=== PATIENT | male | born 1950 | race Caucasian/White ===

== ENCOUNTER → 2023-11-09 09:23 | Outpatient (REF) | payer MEDICARE, OTHER, SELFPAY ==
[2023-11-09 10:21] LABS: Urine Albumin Negative (Neg - Trace); Urine Bilirubin Negative (Negative); Urine Character Clear (Clear); Urine Color Straw; Urine Glucose Negative (Negative); Urine Ketone Negative (Negative); Urine Leukocyte Negative (Negative); Urine Nitrite Negative (Negative); Urine Occult Blood Negative (Negative); Urine Urobilinogen Negative (Neg - 1+)
[2023-11-09 10:22] LABS: Hematocrit 35.1 % (39.0-52.0); Hemoglobin 12.3 g/dL (13.0-18.0); Mean Corpuscular Hgb 29.9 pg (27.0-31.0); Mean Corpuscular Volume 85.2 fL (80.0-94.0); Mean Platelet Volume 10.4 fL (7.4-10.4); Platelet Count 232 10^3/uL (130-400); Red Blood Cell Count 4.12 10^6/uL (4.70-6.10); Red Cell Dist. Width 12.3 % (11.5-14.5); White Blood Cell Count 6.1 10^3/uL (4.8-10.8)
[2023-11-09 10:28] LABS: INR 1.07; PT 14.1 Sec (11.4-14.6)
[2023-11-09 10:51] LABS: ALT (SGPT) 15 U/L (0-50); AST (SGOT) 18 U/L (17-59); Albumin 3.7 g/dl (3.5-5.0); Alkaline Phosphatase 100 U/L (38-126); Blood Urea Nitrogen 18 mg/dl (9-20); Calcium 8.9 mg/dl (8.4-10.2); Carbon Dioxide 29 mmol/L (22-30); Chloride 109 mmol/L (98-107); Glucose 98 mg/dl (70-99); Potassium 4.3 mmol/L (3.5-5.1); Sodium 139 mmol/L (135-145); Total Bilirubin 0.6 mg/dl (0.2-1.3); Total Protein 5.9 g/dl (6.3-8.2); eGFR > 60.00
[2023-11-09 11:52] LABS: Magnesium 2.1 mg/dl (1.6-2.3); Phosphorus 3.8 mg/dl (2.5-4.5)
== END ==
LOC: OLABN 09:23
PROVIDERS: ATTENDING PHYSICIAN Student in an Organized Health Care Education/Training Program
DX: E03.9 Hypothyroidism, unspecified (principal); N20.0 Calculus of kidney; N17.9 Acute kidney failure, unspecified
CPT/HCPCS: 36415; 80053; 81003; 83735; 84100; 84550; 85027; 85610

== ENCOUNTER 2023-11-12 07:08 | Day surgery (SDC) | payer MEDICARE, OTHER, SELFPAY ==
[2023-11-12] VITALS (7 sets, daily range): BP systolic 106–117; BP diastolic 60–69; BMI 30.4
[2023-11-12] MEDS: NORMOSOL-R 1000 IV (09:05)
[2023-11-12] MEDS: TYLENOL 1000 MG PO (09:39)
[2023-11-12] MEDS: Pyridium 200 MG PO (11:52)
== END 2023-11-12 13:15 | disposition home or self-care (01) ==
LOC: SDS 07:08
PROVIDERS: ATTENDING PHYSICIAN Specialist
DX: N20.0 Calculus of kidney (principal)
CPT/HCPCS: 52356; 74018; 76000; 93005; C2617

== ENCOUNTER → 2024-05-17 09:18 | Outpatient (REF) | payer MEDICARE, OTHER, SELFPAY ==
[2024-05-19 14:03] LABS: Keppra (Levetiracetam) 28 ug/mL (10-40)
== END ==
LOC: OLABN 09:18
PROVIDERS: ATTENDING PHYSICIAN Student in an Organized Health Care Education/Training Program
DX: G40.A09 Absence epileptic syndrome, not intractable, without status epilepticus (principal)
CPT/HCPCS: 36415; 80177

== ENCOUNTER → 2024-06-28 10:58 | Outpatient (REF) | payer MEDICARE, OTHER, SELFPAY ==
[2024-06-28 12:08] LABS: TSH 3.55 uIU/ml (0.47-4.68)
== END ==
LOC: OLABN 10:58
PROVIDERS: ATTENDING PHYSICIAN Student in an Organized Health Care Education/Training Program
DX: E03.9 Hypothyroidism, unspecified (principal)
CPT/HCPCS: 36415; 84439; 84443

== ENCOUNTER → 2024-06-30 07:53 | Outpatient (REF) | payer MEDICARE, OTHER, SELFPAY ==
[2024-06-30 08:16] LABS: % Basophils 0.9 % (0-2); % Eosinophils 3.4 % (0-6); % Immature Granulocytes 0.3 % (0-0.5); % Monocytes 10.3 % (1.7-9.3); % Neutrophils 66.1 % (42.2-75.2); Absolute Basophils 0.1 10^3/uL (0-0.2); Absolute Eosinophils 0.3 10^3/uL (0-0.7); Absolute Lymphocytes 1.4 10^3/uL (1.2-3.4); Absolute Monocytes 0.8 10^3/uL (0.1-0.6); Absolute Neutrophils 4.9 10^3/uL (1.4-6.5); Hemoglobin 12.3 g/dL (13.0-18.0); Mean Corp Hgb Conc. 34.2 g/dL (33.0-37.0); Mean Corpuscular Hgb 30.1 pg (27.0-31.0); Mean Corpuscular Volume 88.2 fL (80.0-94.0); Mean Platelet Volume 10.4 fL (7.4-10.4); Nucleated Red Blood Cells % 0 % (-); Platelet Count 236 10^3/uL (130-400); Red Blood Cell Count 4.08 10^6/uL (4.70-6.10); Red Cell Dist. Width 12.6 % (11.5-14.5); White Blood Cell Count 7.4 10^3/uL (4.8-10.8)
[2024-06-30 08:35] LABS: ALT (SGPT) 16 U/L (0-50); AST (SGOT) 17 U/L (17-59); Albumin 3.9 g/dl (3.5-5.0); Alkaline Phosphatase 119 U/L (38-126); Blood Urea Nitrogen 26 mg/dl (9-20); Calcium 9.2 mg/dl (8.4-10.2); Carbon Dioxide 22 mmol/L (22-30); Chloride 108 mmol/L (98-107); Glucose 135 mg/dl (70-99); Potassium 4.1 mmol/L (3.5-5.1); Sodium 144 mmol/L (135-145); Total Bilirubin 0.4 mg/dl (0.2-1.3); eGFR > 60.00
[2024-07-02 02:04] LABS: Keppra (Levetiracetam) 29 ug/mL (10-40)
[2024-07-02 20:48] LABS: Zonisamide 3 ug/mL (10-40)
== END ==
LOC: OLABN 07:53
PROVIDERS: ATTENDING PHYSICIAN Student in an Organized Health Care Education/Training Program
DX: R56.9 Unspecified convulsions (principal)
CPT/HCPCS: 36415; 80053; 80177; 80203; 85025

== ENCOUNTER 2024-07-26 11:46 | Emergency (ER) | payer MEDICARE, OTHER, SELFPAY ==
[2024-07-26 12:03] VITALS: BP 135/69
[2024-07-26 12:23] LABS: % Basophils 0.8 % (0-2); % Eosinophils 2.3 % (0-6); % Immature Granulocytes 0.3 % (0-0.5); % Lymphocytes 14.3 % (20.5-51.1); % Neutrophils 75.3 % (42.2-75.2); Absolute Basophils 0.1 10^3/uL (0-0.2); Absolute Eosinophils 0.2 10^3/uL (0-0.7); Absolute Lymphocytes 1.1 10^3/uL (1.2-3.4); Absolute Monocytes 0.5 10^3/uL (0.1-0.6); Absolute Neutrophils 5.6 10^3/uL (1.4-6.5); Hematocrit 39.2 % (39.0-52.0); Hemoglobin 13.5 g/dL (13.0-18.0); Mean Corp Hgb Conc. 34.4 g/dL (33.0-37.0); Mean Corpuscular Hgb 30.1 pg (27.0-31.0); Mean Corpuscular Volume 87.3 fL (80.0-94.0); Mean Platelet Volume 10.1 fL (7.4-10.4); Nucleated Red Blood Cells % 0 % (-); Platelet Count 232 10^3/uL (130-400); Red Blood Cell Count 4.49 10^6/uL (4.70-6.10); Red Cell Dist. Width 12.1 % (11.5-14.5); White Blood Cell Count 7.5 10^3/uL (4.8-10.8)
[2024-07-26 12:35] LABS: ALT (SGPT) 19 U/L (0-50); AST (SGOT) 18 U/L (17-59); Albumin 4.6 g/dl (3.5-5.0); Alkaline Phosphatase 98 U/L (38-126); Blood Urea Nitrogen 18 mg/dl (9-20); Calcium 9.4 mg/dl (8.4-10.2); Carbon Dioxide 24 mmol/L (22-30); Chloride 105 mmol/L (98-107); Glucose 185 mg/dl (70-99); Sodium 145 mmol/L (135-145); Total Bilirubin 0.5 mg/dl (0.2-1.3); Total Protein 6.8 g/dl (6.3-8.2); eGFR > 60.00
[2024-07-26 12:45] LABS: Troponin I < 0.012 ng/ml
[2024-07-26 14:17] VITALS: BP 118/68
[2024-07-26 15:14] VITALS: BP 126/67
--- NOTE | 2024-07-26 15:51 | ED.GENMED ---
History of Present Illness
<Chase Ashby MD, Resident - Last Filed: 07/26/24 21:36>
General
Chief Complaint: Chest Pain
Source: patient
Exam Limitations: none
Time Seen by Provider: 07/26/24 15:09
History of Present Illness
History of Present Illness:
74-year-old male with past medical history of hypertension,TIA, seizure who presents with bilateral chest pain since yesterday. He states it is like 'bruising' kind of feeling and 'deep sore' sensation. He also mentions feeling bruised under his
armpits. Also mentions he is not sure if it is a burning pain related to GERD. Pain got better with a dose of Tylenol. Patient had similar complaint 2 years ago and feels that this is the same but only more severe. No nausea vomiting. No
sweating. Bowel movements are regular. No shortness of breath/ no coughing. Denies recent travel/ surgery/ trauma. Mentions he is quite active and lifts weights daily.
Past History
<Chase Ashby MD, Resident - Last Filed: 07/26/24 21:36>
Past History
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
Other (duodenal ulcer with UGI bleed 2012, kidney stones); Negative IDDM
ED Past Surgical History: Other (lithotripsy, Malignant melanoma removed from left shoulder 2 years ago.)
Social History
Tobacco: Non-smoker
Alcohol: Occasional (rare ETOH)
Drug: None
Personal: Single
Living: longterm
Employment: Disabled
Family History
Family History: Hypertension
Review of Systems
<Chase Ashby MD, Resident - Last Filed: 07/26/24 21:36>
Review of Systems
Allergies reviewed?: Yes
All Other Systems: ROS reviewed and negative except as documented in HPI and ROS
Phy Exam
<Chase Ashby MD, Resident - Last Filed: 07/26/24 21:36>
Physical Exam
Physical Exam:
Alert and oriented
Cardiovascular Exam
Cardiovascular Exam: regular rate/rhythm, no edema, no JVD, no murmur and normal peripheral pulses
Pulmonary Exam
Pulmonary Exam: lungs clear, no respiratory distress, no crackles, no wheezing and other (Lateral upper chest wall on both sides tender to palpation. )
Gastrointestinal Exam
Gastrointestinal Exam: normal bowel sounds, non tender, soft, no organomegaly and other (Umbilical hernia, Moderate abdominal distention)
Neurological Exam
Neurological Exam: alert, oriented x3, CN II-XII intact, no motor deficits, normal reflexs, no sensory deficits and speech normal
Musculoskeletal Exam
Musculoskeletal Exam: full ROM, no edema and other (Reproducible lateral chest pain on both sides)
Scores
<Chase Ashby MD, Resident - Last Filed: 07/26/24 21:36>
Heart Score for Chest Pain Patients
STEMI patient?: No
History: Slightly or Non-Suspicious
ECG: Normal
Age: >/= 65 years
Risk Factors: 1 or 2 Risk Factors
Troponin: </= Normal Limit
Heart Score for Chest Pain Patients: 3
Heart Score Risk: 2.5% MACE over next 6 weeks
Course
<Chase Ashby MD, Resident - Last Filed: 07/26/24 21:36>
Orders/Labs/Results
Orders:
Orders
07/26/24 11:48
Electrocardiogram (*1) Urgent
Reason for Study: Chest Pain
EKG- Treatment ONCE
07/26/24 12:13
C-Reactive Protein Urgent
Comment: ESR
Complete Blood Count/With Diff Urgent
Comprehensive Metabolic Panel Urgent
Erythrocyte Sed Rate Urgent
Comment: ADD ON
Troponin I Urgent
07/26/24 16:03
Add On- LAB Urgent
Tests Added?: ESR, CRP
CR Chest - 2 Views Urgent
Comment:
Reason For Exam: chest pain
07/26/24 17:53
Acetaminophen [Tylenol] 650 mg PO NOW STA
Abnormal Lab Results
07/26/24
12:13
RBC 4.49 L 10^6/uL
(4.70-6.10)
Absolute Lymphs (auto) 1.1 L 10^3/uL
(1.2-3.4)
Neutrophils % 75.3 H %
(42.2-75.2)
Lymphocytes % 14.3 L %
(20.5-51.1)
Glucose 185 H mg/dl
(70-99)
07/26/24 12:13
07/26/24 12:13
Vital Signs
Initial and Last Documented VS:
Initial Vital Signs
Temp Pulse Resp BP Pulse Ox
97.7 F 69 18 135/69 98
07/26/24 12:03 07/26/24 12:03 07/26/24 12:03 07/26/24 12:03 07/26/24 12:03
Last Documented Vital Signs
Temp Pulse Resp BP Pulse Ox
97.8 F 69 12 105/86 97
07/26/24 14:17 07/26/24 18:15 07/26/24 18:15 07/26/24 18:00 07/26/24 18:15
<Sukh Andre MD - Last Filed: 07/26/24 17:55>
Orders/Labs/Results
Orders:
Orders
07/26/24 11:48
Electrocardiogram (*1) Urgent
Reason for Study: Chest Pain
EKG- Treatment ONCE
07/26/24 12:13
C-Reactive Protein Urgent
Comment: ESR
Complete Blood Count/With Diff Urgent
Comprehensive Metabolic Panel Urgent
Erythrocyte Sed Rate Urgent
Comment: ADD ON
Troponin I Urgent
07/26/24 16:03
Add On- LAB Urgent
Tests Added?: ESR, CRP
CR Chest - 2 Views Urgent
Comment:
Reason For Exam: chest pain
07/26/24 17:53
Acetaminophen [Tylenol] 650 mg PO NOW STA
Abnormal Lab Results
07/26/24
12:13
RBC 4.49 L 10^6/uL
(4.70-6.10)
Absolute Lymphs (auto) 1.1 L 10^3/uL
(1.2-3.4)
Neutrophils % 75.3 H %
(42.2-75.2)
Lymphocytes % 14.3 L %
(20.5-51.1)
Glucose 185 H mg/dl
(70-99)
07/26/24 12:13
07/26/24 12:13
Vital Signs
Initial and Last Documented VS:
Initial Vital Signs
Temp Pulse Resp BP Pulse Ox
97.7 F 69 18 135/69 98
07/26/24 12:03 07/26/24 12:03 07/26/24 12:03 07/26/24 12:03 07/26/24 12:03
Last Documented Vital Signs
Temp Pulse Resp BP Pulse Ox
97.8 F 69 12 105/86 97
07/26/24 14:17 07/26/24 18:15 07/26/24 18:15 07/26/24 18:00 07/26/24 18:15
<Chase Ashby MD, Resident - Last Filed: 07/26/24 21:36>
MDM/Problems Addressed
Differential Diagnosis Includes:
Musculoskeletal pain, PMR, Stable angina, Unstable angina (less likely)
<Chase Ashby MD, Resident - Last Filed: 07/26/24 21:36>
*Critical Care Note
Total Time (30-74mins, 75-104mins- exclusive of procedures): Not Applicable
ED Attending Note
<Chase Ashby MD, Resident - Last Filed: 07/26/24 21:36>
-
Portions of this chart may have been created with voice recognition software.� Occasional wrong word or��sound alike� substitutions may have occurred due to the inherent limitations of voice recognition software.
<Sukh Andre MD - Last Filed: 07/26/24 17:55>
ED Attending Note
Patient seen and examined by attending physician: Yes
ED Attending Note:
Patient presents to ED from longterm secondary to persistent chest pain and bilateral 'armpit pain' since yesterday afternoon. Chest pain described as sharp, radiating across his entire chest, without any exacerbating factors, but mildly
relieved with Tylenol. Denies direct trauma. Denies fever or chills. Denies shortness of breath. Denies nausea or vomiting. Patient states that he has had similar symptoms in the past, but does not know why. Patient states that he routinely,
sometimes daily, exercise with the use of light weight, including range of motion, as recommended by physical therapist at the facility. Denies increasing weight. Denies recent illness. Denies recent change in medications or diet.
Physical Exam
General: no apparent distress, not acutely ill. afebrile
Head: nc/at. eomi
Neck: supple. normal range of motion.
Heart: s1/s2 regular rate and rhythm, no murmur. equal radial pulses.
Lungs: no acute respiratory distress. clear bilaterally. mild diffuse anterior chest wall tenderness to palpation, without erythema/swelling/ecchymosis.
Abdomen: normal bowel sounds. not tender.
Neuro: alert and oriented. no focal neurological deficits. normal speech.
Skin: no rash
Psychiatric: well kept. interactive and cooperative
Extremities: diffuse b/l shoulder/knee pain. no calf tenderness.
Patient with reproducible chest wall pain, with differential diagnosis including musculoskeletal pain, lymphadenopathy, rib strain, less likely ACS. Blood work, including troponin and EKG within normal limits. Will check chest x-ray as well as ESR
and CRP due to multiple joint pain.
Chest x-ray: No acute findings.
Patient with likely musculoskeletal pain, not requiring further workup at this time. Patient will be advised to not participate in any physical therapy or exercise program for the next 2 days, along with tylenol for pain and PCP follow-up as an
outpatient.
Discharge Plan
Departure
Patient Disposition: Detention/SNF
Date of Disposition: 07/26/24
Time of Disposition: 17:54
Patient with high blood pressure during this ER visit?: Yes
Discharge Problem:
Musculoskeletal pain
Instructions: Chest Pain PCP Follow Up
Prescriptions:
No Action
aspirin 81 MG tablet,delayed release (DR/EC)
81 mg PO DAILY Qty: 0 0RF
atorvastatin 40 MG tablet
40 mg PO QPM
famotidine 20 MG tablet
10 mg PO DAILY
potassium citrate 10 MEQ tablet extended release
30 meq PO BID
levothyroxine 25 MCG tablet
25 mcg PO DAILY
acetaminophen 325 MG tablet
650 mg PO Q4HPRN PRN (Reason: MILD PAIN) 0RF
Rx Instructions:
FEVER > 100.4
sennosides [senna] 8.6 mg Tablet
8.6 mg PO HS
polyethylene glycol 3350 [Miralax] 17 gram Powder In Packet
17 g PO DAILY
Rx Instructions:
stir powder in at least 4 oz fluid until dissolved and administer immediately
amlodipine 5 mg Tablet
5 mg PO DAILY
zonisamide [Zonegran] 100 mg Capsule
100 mg PO DAILY
tamsulosin 0.4 mg Capsule
0.8 mg PO HS
trazodone 100 mg Tablet
100 mg PO HS
hydrocortisone 1 % Cream
1 applic TOPICAL BID PRN (Reason: skin rash)
Rx Instructions:
apply to forehead, until resolved
triamcinolone acetonide 40 mg/mL Suspension
40 mg IM PRN PRN (Reason: corticosteroid injection)
Rx Instructions:
to be given in left knee by Dr. Rubio
bisacodyl 10 mg Suppository
10 mg [place] DAILY PRN (Reason: constipation)
Rx Instructions:
q3days when no BM and lactulose is ineffective
oxybutynin chloride [Ditropan XL] 5 mg Tablet Extended Release 24hr
5 mg PO HS
gabapentin 300 mg Capsule
300 mg PO TID
levetiracetam [Keppra] 750 mg Tablet
1,500 mg PO BID
alum-mag hydroxide-simeth [Antacid] 200-200-20 mg/5 mL Suspension
20 ml PO Q8H
nystatin 100,000 unit/gram Powder
1 applic TOPICAL BID PRN (Reason: cutaneous candidiasis)
loratadine 10 mg Tablet
10 mg PO DAILY PRN (Reason: hypersensitive allergies)
lactulose 10 gram/15 mL Solution
20 g PO HS PRN (Reason: constipation)
Refresh Optive 0.5-0.9 % Drops
1 drp OPHTHALMIC (EYE) BID PRN (Reason: dry eye)
Rx Instructions:
BOTH EYES
lidocaine HCl 4 % Adhesive Patch,Medicated
1 patch TOPICAL DAILY
Rx Instructions:
ON AM, OFF PM
x14 days, first date: 11/03/2023
Left knee
sertraline 25 MG tablet
50 mg PO DAILY
Referrals:
Sancho Spencer DO [Family Provider] -
Activity Restrictions/Additional Instructions:
As discussed, you are being discharged back to longterm for continual care. You may take Tylenol, as needed for pain.
Interventions
Interventions:
*Risk Screen - Suicide Last Done: 07/26/24 12:03
*General Assessment Last Done: 07/26/24 12:03
*Neglect/Abuse Screening Last Done: 07/26/24 12:03
ED- Fall Risk Assessment Last Done: 07/26/24 19:54
*ED COVID-19 Vaccine History Last Done: 07/26/24 12:05
*Nursing Disposition Last Done: 07/26/24 19:54
ED- Cardiac Assessment Last Done: 07/26/24 15:16
Discharge Date and Time
Discharge Date/Time: 07/26/24 19:55
Print Language: GRENADIAN
[2024-07-26 16:00] VITALS: BP 135/100
[2024-07-26 17:20] VITALS: BP 120/56
[2024-07-26 17:43] LABS: Erythrocyte Sed Rate 13 mm/hour (0-20)
[2024-07-26 18:00] VITALS: BP 105/86
[2024-07-26] MEDS: TYLENOL 650 MG PO (18:00)
== END 2024-07-26 19:55 ==
LOC: EMR 11:46
PROVIDERS: Student in an Organized Health Care Education/Training Program; EMERGENCY PHYSICIAN Emergency Medicine; FAMILY PHYSICIAN Student in an Organized Health Care Education/Training Program
DX: R07.9 Chest pain, unspecified (principal); K21.9 Gastro-esophageal reflux disease without esophagitis; I10 Essential (primary) hypertension; G47.30 Sleep apnea, unspecified; Z85.820 Personal history of malignant melanoma of skin; Z86.73 Personal history of transient ischemic attack (TIA), and cerebral infarction without residual deficits
CPT/HCPCS: 99285; 71046; 80053; 84484; 85025; 85652; 86140; 93005

== ENCOUNTER 2024-07-29 20:17 | Emergency (ER) | payer MEDICARE, OTHER, SELFPAY ==
[2024-07-29 20:24] VITALS: BP 119/75
[2024-07-29 20:28] VITALS: BP 119/75
--- NOTE | 2024-07-29 21:04 | ED.GENMED ---
History of Present Illness
General
Chief Complaint: Abdominal Pain
Source: patient
Exam Limitations: none
Time Seen by Provider: 07/29/24 20:18
History of Present Illness
History of Present Illness:
This is a 74 year old male that comes in with c/o right lower abd pain. States that he has this stabbing pain or like a deep bruising pain on the right abd. States that his pain radiates around to his right lower back. States that this started at
3:45am today and that the pain has been constant. Denies any fever, chills, chest pain, SOB, nausea, vomiting, diarrhea, headache, dizziness, urinary burning.
Past History
Past History
ED Past Medical History: Cancer (malignant melanoma removed from shoulder on the left, Skin cancer), CVA, GERD, HTN, Hypercholesterolemia, Seizures, Hypothyroidism, Psychiatric (Anxiety, Depression, ), Other (Migraines, IBS, chronic static
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 difficulty with balance, Neuropathy, Sleep apnea uses CPAP, DVT left, GI bleeding, Renal calculus, ), Other (TIAs, UTi, Brachial plexlpathy, ) and Other (duodenal ulcer with UGI bleed 2012, kidney
stones); Negative IDDM
ED Past Surgical History: Urological (Lithotripsy X 2) and Other (lithotripsy, Malignant melanoma removed from left shoulder 2 years ago.)
Social History
Tobacco: Non-smoker
Alcohol: Occasional (rare ETOH)
Drug: None
Personal: Single
Living: senior living
Employment: Disabled
Family History
Family History: Hypertension
Review of Systems
Review of Systems
All Other Systems: ROS reviewed and negative except as documented in HPI and ROS
Constitutional: Reports no symptoms; Denies fever or chills
EENT: Reports no symptoms
Respiratory: Reports no symptoms; Denies cough or trouble breathing
Cardiac: Reports no symptoms; Denies chest pain
ABD/GI: Reports abdominal pain; Denies nausea, vomiting or diarrhea
: Reports no symptoms; Denies dysuria, frequency or urgency
Musculoskeletal: Reports no symptoms
Skin: Reports no symptoms
Neurological: Reports no symptoms; Denies dizzy or headache
Psychiatric: Reports no symptoms
Phy Exam
General Physical Exam
General Presentation: no apparent distress
General age: appears stated age
General Skin: warm and dry
General Habitus: elderly
General Mental: alert
General Hydration: dry mucous membranes
ENT Exam
ENT Exam: TM's normal, pharynx normal and neck supple
Eye Exam
Eye Exam: EOMI
Cardiovascular Exam
Cardiovascular Exam: regular rate/rhythm and normal peripheral pulses
Pulmonary Exam
Pulmonary Exam: lungs clear, no respiratory distress, no rales, chest non tender, no crackles, no rhonchi, no wheezing and no cough
Gastrointestinal Exam
Gastrointestinal Exam: normal bowel sounds, soft, no organomegaly, no pulsatile mass, non distended and tender (Right lower abd tenderness with palpation)
Musculoskeletal Exam
Musculoskeletal Exam: full ROM
Skin Exam
Skin Exam: normal color, warm/dry, no rash and no petechia
Psychiatric Exam
Psychiatric Exam: normal mood/affect
Course
Orders/Labs/Results
Orders:
Orders
07/29/24 20:36
Electrocardiogram (*1) Urgent
Reason for Study: Abdominal Pain
EKG- Treatment ONCE
IV Insert/Care/Rem.- Treatment PRN
07/29/24 21:03
CT Abd/pelvis W Iv Cont Urgent
Comment:
Reason For Exam: Right lower abd pain
07/29/24 21:04
0.9% Sodium Chloride 500 ml [Nss] 500 ml IV BOLUS
07/29/24 21:11
Complete Blood Count/With Diff Urgent
Comprehensive Metabolic Panel Urgent
Lipase Urgent
07/29/24 23:09
Urinalysis Reflex To Culture Urgent
Date Specimen was Collected: 07/29/24
Time Specimen was Collected: 20:36
Urine Microscopic Reflex Cult Urgent
07/29/24 23:43
HYDROmorphone [Dilaudid] 0.5 mg .ROUTE .STK-MED ONE
Ondansetron Injectable [Zofran] 4 mg .ROUTE .STK-MED ONE
07/29/24 23:45
Ondansetron Injectable [Zofran] 4 mg IV NOW STA
07/29/24 23:46
HYDROmorphone [Dilaudid] 0.5 mg IV NOW STA
07/29/24 23:55
Tamsulosin [Flomax] 0.4 mg PO NOW STA
Abnormal Lab Results
07/29/24 07/29/24
21:11 23:09
RBC 4.53 L 10^6/uL
(4.70-6.10)
Hct 37.8 L %
(39.0-52.0)
Absolute Neuts (auto) 8.3 H 10^3/uL
(1.4-6.5)
Absolute Lymphs (auto) 0.9 L 10^3/uL
(1.2-3.4)
Absolute Monos (auto) 1.2 H 10^3/uL
(0.1-0.6)
Neutrophils % 78.6 H %
(42.2-75.2)
Lymphocytes % 8.0 L %
(20.5-51.1)
Monocytes % 11.1 H %
(1.7-9.3)
BUN 21 H mg/dl
(9-20)
Glucose 142 H mg/dl
(70-99)
Ur Occult Blood Reflex Trace A
(Negative)
07/29/24 21:11
07/29/24 21:11
slight Dehydration. hyperglycemia. Urine negative for infection. Lipase normal at 110
Vital Signs
Initial and Last Documented VS:
Initial Vital Signs
Temp Pulse Resp BP Pulse Ox
98.3 F 65 16 119/75 94
07/29/24 20:24 07/29/24 20:24 07/29/24 20:24 07/29/24 20:24 07/29/24 20:24
Last Documented Vital Signs
Temp Pulse Resp BP Pulse Ox
98.3 F 65 12 119/75 93
07/29/24 20:24 07/29/24 21:15 07/29/24 21:15 07/29/24 20:28 07/29/24 21:15
MDM/Problems Addressed
Differential Diagnosis Includes:
Renal calculus, Appendicitis
MDM/Problems Addressed:
This is a 74 year old male that comes in with c/o right lower abd pain that goes around to his back. States that this started today.
will check labs, urine and get CT scan,
back into see patient. Explained that he has 2 stones in the right ureter. Patient is taking Flomax. Will have patient use Tylenol and Ibuprofen for pain and will also sent a Narcotic pain medication to his pharmacy. Patient to strain his urine and
follow up with the Urologist. Patient to return with any increased or changing pain. Offered patient admission but he wants to try and pass the stones on his own.
Chronic conditions affecting care:
Renal calculus
Acute Exacerbation and/or Progression of Chronic Illness:
NA
*Radiology
Radiology exam reviewed: radiology read reviewed (CT night hawk- Two closly apposed obstructing calculi in the proximal right ureter, each individually measuring up to 5mm, and together measuring up to 8mm combined maximum SI dimension (203:40).
There is associated mild to moderate right hydroureteronephrosis. Right-sided perinephric stranding may), all reviewed NAD by ED Provider (CT cont-may be related to obstructive your are, through correlation with UA to assess for superimposed
infection is recommended. Bilateral renal calculi also seen. Noninflamed appendix. Additional findings: DHD, DISH. grade 1 anterolisthesis of L4 and L5. Grade 1 retrolisthesis of L5 on S1. ) and other (Ct cont- fat-containing umbilical hernia.
vascular calcifications. Probable bilateral renal cystic foci. )
*Pulse Oximetry
Patient hypoxic: no
*EKG
Interpreted by ED Provider?: Yes
Heart Rate: 63
Rate: normal
Rhythm: sinus
Cantril: normal axis
Interval: normal interval
QRS Pattern: normal QRS
Ischemia: no ischemia
*Employee Relations Assistant Interpretation
Rate: normal
Heart Rate: 71
Rhythm: sinus
*Critical Care Note
Total Time (30-74mins, 75-104mins- exclusive of procedures): Not Applicable
ED Attending Note
-
Portions of this chart may have been created with voice recognition software.� Occasional wrong word or��sound alike� substitutions may have occurred due to the inherent limitations of voice recognition software.
Discharge Plan
Departure
Patient Disposition: Snf/SNF
Date of Disposition: 07/30/24
Time of Disposition: 00:01
Patient with high blood pressure during this ER visit?: No
Condition: Good
Covid-19: Not Applicable
Discharge Problem:
Renal calculus, right
Instructions: Renal Colic (DC), How to Strain Your Urine, Narcotic Pain Medication
Prescriptions:
New
oxycodone 5 mg tablet
5 mg PO Q6H PRN (Reason: Pain) Qty: 10 0RF
No Action
aspirin 81 MG tablet,delayed release (DR/EC)
81 mg PO DAILY Qty: 0 0RF
atorvastatin 40 MG tablet
40 mg PO QPM
famotidine 20 MG tablet
10 mg PO DAILY
potassium citrate 10 MEQ tablet extended release
30 meq PO BID
levothyroxine 25 MCG tablet
25 mcg PO DAILY
acetaminophen 325 MG tablet
650 mg PO Q4HPRN PRN (Reason: MILD PAIN) 0RF
Rx Instructions:
FEVER > 100.4
sennosides [senna] 8.6 mg Tablet
8.6 mg PO HS
polyethylene glycol 3350 [Miralax] 17 gram Powder In Packet
17 g PO DAILY
Rx Instructions:
stir powder in at least 4 oz fluid until dissolved and administer immediately
amlodipine 5 mg Tablet
5 mg PO DAILY
zonisamide [Zonegran] 100 mg Capsule
100 mg PO DAILY
tamsulosin 0.4 mg Capsule
0.8 mg PO HS
trazodone 100 mg Tablet
100 mg PO HS
hydrocortisone 1 % Cream
1 applic TOPICAL BID PRN (Reason: skin rash)
Rx Instructions:
apply to forehead, until resolved
triamcinolone acetonide 40 mg/mL Suspension
40 mg IM PRN PRN (Reason: corticosteroid injection)
Rx Instructions:
to be given in left knee by Dr. Rubio
bisacodyl 10 mg Suppository
10 mg [place] DAILY PRN (Reason: constipation)
Rx Instructions:
q3days when no BM and lactulose is ineffective
oxybutynin chloride [Ditropan XL] 5 mg Tablet Extended Release 24hr
5 mg PO HS
gabapentin 300 mg Capsule
300 mg PO TID
levetiracetam [Keppra] 750 mg Tablet
1,500 mg PO BID
alum-mag hydroxide-simeth [Antacid] 200-200-20 mg/5 mL Suspension
20 ml PO Q8H
nystatin 100,000 unit/gram Powder
1 applic TOPICAL BID PRN (Reason: cutaneous candidiasis)
loratadine 10 mg Tablet
10 mg PO DAILY PRN (Reason: hypersensitive allergies)
lactulose 10 gram/15 mL Solution
20 g PO HS PRN (Reason: constipation)
Refresh Optive 0.5-0.9 % Drops
1 drp OPHTHALMIC (EYE) BID PRN (Reason: dry eye)
Rx Instructions:
BOTH EYES
lidocaine HCl 4 % Adhesive Patch,Medicated
1 patch TOPICAL DAILY
Rx Instructions:
ON AM, OFF PM
x14 days, first date: 11/03/2023
Left knee
sertraline 25 MG tablet
50 mg PO DAILY
Referrals:
Dean Bautista MD [Active] - Follow up in 5-7 days
Sancho Spencer DO [Family Provider] -
Activity Restrictions/Additional Instructions:
As discussed, you have 2 renal calculus in the right ureter. Please continue with your Flomax as directed at bedtime. You can also use Tylenol 1000mg every 6 hours for pain and Ibuprofen 600mg every 6 hours with food for pain. So if you take
Tylenol at 9am you can take the Ibuprofen at 12 noon and the Tylenol again at 3pm and Ibuprofen at 6pm. You have had a narcotic pain prescription sent to your pharmacy. This will make you tired. Please no alcohol when taking. Please strain your
urine. Increased your water intake to 8-8oz glasses daily. Follow up with the Urologist for further evaluation. IF YOU HAVE INCREASED OR CHANGING PAIN, FEVER, OR YOU HAVE ANY OTHER CONCERNS PLEASE RETURN TO THE EMERGENCY ROOM.
Interventions
Interventions:
*Risk Screen - Suicide Last Done: 07/29/24 20:24
*General Assessment Last Done: 07/29/24 20:24
*Neglect/Abuse Screening Last Done: 07/29/24 20:24
ED- Fall Risk Assessment Last Done: 07/29/24 20:24
*ED COVID-19 Vaccine History Last Done: 07/29/24 20:24
VF-Rulzhy-Vxpqiuctck Assessment Last Done: 07/29/24 21:00
Discharge Date and Time
Print Language: GABONESE
[2024-07-29 21:16] VITALS: BMI 31.7
[2024-07-29 21:20] LABS: % Basophils 0.4 % (0-2); % Eosinophils 1.5 % (0-6); % Immature Granulocytes 0.4 % (0-0.5); % Monocytes 11.1 % (1.7-9.3); % Neutrophils 78.6 % (42.2-75.2); Absolute Eosinophils 0.2 10^3/uL (0-0.7); Absolute Lymphocytes 0.9 10^3/uL (1.2-3.4); Absolute Monocytes 1.2 10^3/uL (0.1-0.6); Absolute Neutrophils 8.3 10^3/uL (1.4-6.5); Hematocrit 37.8 % (39.0-52.0); Hemoglobin 13.1 g/dL (13.0-18.0); Mean Corp Hgb Conc. 34.7 g/dL (33.0-37.0); Mean Corpuscular Hgb 28.9 pg (27.0-31.0); Mean Corpuscular Volume 83.4 fL (80.0-94.0); Mean Platelet Volume 10.1 fL (7.4-10.4); Nucleated Red Blood Cells % 0 % (-); Platelet Count 233 10^3/uL (130-400); Red Blood Cell Count 4.53 10^6/uL (4.70-6.10); Red Cell Dist. Width 12.2 % (11.5-14.5); White Blood Cell Count 10.6 10^3/uL (4.8-10.8)
[2024-07-29] MEDS: NSS 500 IV (21:21)
[2024-07-29 21:35] LABS: ALT (SGPT) 20 U/L (0-50); AST (SGOT) 24 U/L (17-59); Albumin 4.3 g/dl (3.5-5.0); Alkaline Phosphatase 118 U/L (38-126); Blood Urea Nitrogen 21 mg/dl (9-20); Calcium 9.9 mg/dl (8.4-10.2); Carbon Dioxide 27 mmol/L (22-30); Chloride 105 mmol/L (98-107); Estimated Creatinine Clearance 64 ml/min; Glucose 142 mg/dl (70-99); Lipase 110 U/L (23-300); Potassium 4.1 mmol/L (3.5-5.1); Sodium 142 mmol/L (135-145); Total Bilirubin 0.3 mg/dl (0.2-1.3); Total Protein 6.7 g/dl (6.3-8.2); eGFR 58.01
[2024-07-29 22:00] VITALS: BP 129/73
[2024-07-29 23:07] VITALS: BP 142/73
[2024-07-29 23:15] LABS: Urine Albumin Negative (Neg - Trace); Urine Bilirubin Negative (Negative); Urine Character Clear (Clear); Urine Color Straw; Urine Glucose Negative (Negative); Urine Ketone Negative (Negative); Urine Leukocyte Negative (Negative); Urine Nitrite Negative (Negative); Urine Occult Blood Trace (Negative); Urine Specific Gravity 1.015 (<1.030); Urine Urobilinogen Negative (Neg - 1+)
[2024-07-29] MEDS: DILAUDID 0.5 MG IV (23:46)
[2024-07-29] MEDS: ZOFRAN 4 MG IV (23:48)
[2024-07-30] VITALS: BP 129/76
[2024-07-30] MEDS: FLOMAX 0.4 MG PO (00:02)
[2024-07-30 01:00] VITALS: BP 112/67
[2024-07-30 01:58] LABS: Urine Bacteria Moderate (Negative); Urine White Cell 0-2 /HPF (0-5)
== END 2024-07-30 01:45 ==
LOC: EMR 20:17
PROVIDERS: Clinical Nurse Specialist Family Health; EMERGENCY PHYSICIAN Student in an Organized Health Care Education/Training Program; FAMILY PHYSICIAN Student in an Organized Health Care Education/Training Program
DX: N13.2 Hydronephrosis with renal and ureteral calculous obstruction (principal)
CPT/HCPCS: 99285; 96374; 96375; 96361; 74177; 80053; 81003; 81015; 83690; 85025; 87086; 93005; Q9967

== ENCOUNTER 2024-08-09 06:32 | Day surgery (SDC) | payer MEDICARE, OTHER, SELFPAY ==
[2024-08-04 12:37] VITALS: BMI 31.5
[2024-08-09] VITALS (11 sets, daily range): BP systolic 121–143; BP diastolic 67–77; BMI 31.5
[2024-08-09] MEDS: Pyridium 200 MG PO (16:25)
== END 2024-08-09 17:35 | disposition home or self-care (01) ==
LOC: SDS 06:32
PROVIDERS: ATTENDING PHYSICIAN Specialist
DX: N13.2 Hydronephrosis with renal and ureteral calculous obstruction (principal)
CPT/HCPCS: 52356; 74018; 76000; C2617

== ENCOUNTER → 2024-08-16 10:34 | Outpatient (REF) | payer MEDICARE, OTHER, SELFPAY ==
[2024-08-18 00:59] LABS: Keppra (Levetiracetam) 31 ug/mL (10-40)
== END ==
LOC: OLABN 10:34
PROVIDERS: ATTENDING PHYSICIAN Student in an Organized Health Care Education/Training Program
DX: G40.A09 Absence epileptic syndrome, not intractable, without status epilepticus (principal)
CPT/HCPCS: 36415; 80177

== ENCOUNTER → 2024-10-28 14:00 | Outpatient (REF) | payer MEDICARE, OTHER, SELFPAY | LOC: OLABN 14:00 | PROVIDERS: ATTENDING PHYSICIAN Student in an Organized Health Care Education/Training Program | DX: R09.89 Other specified symptoms and signs involving the circulatory and respiratory systems (principal) | CPT/HCPCS: 87502 ==

== ENCOUNTER → 2024-11-02 11:35 | Outpatient (REF) | payer MEDICARE, OTHER, SELFPAY ==
[2024-11-02 12:52] LABS: HDL Cholesterol 30 mg/dl; LDL Cholesterol, Calculated 50 mg/dl; Total Cholesterol 92 mg/dl (50-199); Triglyceride 62 mg/dl (10-149); Very Low Density Lipoprotein 12 mg/dl (0-30)
== END ==
LOC: OLABN 11:35
PROVIDERS: ATTENDING PHYSICIAN Student in an Organized Health Care Education/Training Program
DX: E78.5 Hyperlipidemia, unspecified (principal)
CPT/HCPCS: 36415; 80061

== ENCOUNTER → 2024-11-15 10:20 | Outpatient (REF) | payer MEDICARE, OTHER, SELFPAY ==
[2024-11-17 04:32] LABS: Keppra (Levetiracetam) 31 ug/mL (10-40)
== END ==
LOC: OLABN 10:20
PROVIDERS: ATTENDING PHYSICIAN Student in an Organized Health Care Education/Training Program
DX: E11.9 Type 2 diabetes mellitus without complications (principal)
CPT/HCPCS: 36415; 80177

== ENCOUNTER 2024-12-20 11:17 | Emergency (ER) | payer MEDICARE, OTHER, SELFPAY ==
[2024-12-20 11:26] VITALS: BP 120/74
[2024-12-20 11:28] VITALS: BMI 32.3
[2024-12-20 11:47] LABS: % Basophils 0.7 % (0-2); % Eosinophils 2.5 % (0-6); % Immature Granulocytes 0.4 % (0-0.5); % Lymphocytes 14.3 % (20.5-51.1); % Monocytes 7.9 % (1.7-9.3); % Neutrophils 74.2 % (42.2-75.2); Absolute Basophils 0.1 10^3/uL (0-0.2); Absolute Eosinophils 0.2 10^3/uL (0-0.7); Absolute Lymphocytes 1.1 10^3/uL (1.2-3.4); Absolute Monocytes 0.6 10^3/uL (0.1-0.6); Absolute Neutrophils 5.6 10^3/uL (1.4-6.5); Hematocrit 36.3 % (39.0-52.0); Hemoglobin 12.5 g/dL (13.0-18.0); Mean Corp Hgb Conc. 34.4 g/dL (33.0-37.0); Mean Corpuscular Hgb 29.4 pg (27.0-31.0); Mean Corpuscular Volume 85.4 fL (80.0-94.0); Mean Platelet Volume 9.9 fL (7.4-10.4); Nucleated Red Blood Cells % 0 % (-); Platelet Count 226 10^3/uL (130-400); Red Blood Cell Count 4.25 10^6/uL (4.70-6.10); Red Cell Dist. Width 12.3 % (11.5-14.5); White Blood Cell Count 7.5 10^3/uL (4.8-10.8)
[2024-12-20 11:54] LABS: ALT (SGPT) 17 U/L (0-50); AST (SGOT) 17 U/L (17-59); Albumin 4.1 g/dl (3.5-5.0); Alkaline Phosphatase 98 U/L (38-126); Blood Urea Nitrogen 18 mg/dl (9-20); Calcium 9.6 mg/dl (8.4-10.2); Carbon Dioxide 27 mmol/L (22-30); Chloride 107 mmol/L (98-107); Estimated Creatinine Clearance 104 ml/min; Glucose 154 mg/dl (70-99); Potassium 4.1 mmol/L (3.5-5.1); Sodium 140 mmol/L (135-145); Total Bilirubin 0.6 mg/dl (0.2-1.3); Total Protein 6.5 g/dl (6.3-8.2); eGFR > 60.00
[2024-12-20 12:00] VITALS: BP 111/63
[2024-12-20 12:29] LABS: Troponin I < 0.012 ng/ml
--- NOTE | 2024-12-20 12:33 | ED.GENMED ---
History of Present Illness
General
Chief Complaint: Chest Pain
Source: patient
Exam Limitations: none
Time Seen by Provider: 12/20/24 12:00
Nursing documentation reviewed up to this point in time: agreed with
History of Present Illness
History of Present Illness:
Patient is a 74-year-old male past medical history of absence epileptic syndrome hypothyroidism hyperlipidemia sleep apnea overactive bladder venous insufficiency presents to the ER today for complaints of chest pain and back pain. He reports for
the past several days he has noticed that his chest was very sore almost like he was' punched in my chest.' He also has some pain radiating to his left shoulder blade area and b/l shoulders. today he had s/s when he was using his arms to get
around in his wheelchair.
He denies any shortness of breath. He does walk with a rollator and walks approximately '1000 feet a day .'and uses a wheelchair as well. He denies any injury but does use his arms to get himself around with a wheelchair. He denies any shortness
of breath nausea vomiting.
Past History
Past History
ED Past Medical History: Cancer (malignant melanoma removed from shoulder on the left, Skin cancer), CVA, GERD, HTN, Hypercholesterolemia, Seizures, Hypothyroidism, Psychiatric (Anxiety, Depression, ), Other (Migraines, IBS, chronic static
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 difficulty with balance, Neuropathy, Sleep apnea uses CPAP, DVT left, GI bleeding, Renal calculus, ), Other (TIAs, UTi, Brachial plexlpathy, ) and Other (duodenal ulcer with UGI bleed 2012, kidney
stones); Negative IDDM
ED Past Surgical History: Urological (Lithotripsy X 2) and Other (lithotripsy, Malignant melanoma removed from left shoulder 2 years ago.)
Social History
Tobacco: Non-smoker
Alcohol: Occasional (rare ETOH)
Drug: None
Personal: Single
Living: [facility]
Employment: Disabled
Family History
Family History: Hypertension
Review of Systems
Review of Systems
Allergies reviewed?: Yes
All Other Systems: ROS reviewed and negative except as documented in HPI and ROS
Constitutional: Reports no symptoms
Respiratory: Denies cough or trouble breathing
Cardiac: Reports chest pain
ABD/GI: Reports no symptoms
: Reports no symptoms
Musculoskeletal: Reports back pain (pain to left shoulder blade region )
Skin: Reports no symptoms
Psychiatric: Reports no symptoms
Phy Exam
General Physical Exam
General Presentation: no apparent distress
General age: appears stated age
General Skin: warm and dry
General Habitus: elderly
General Hydration: appears well hydrated
Cardiovascular Exam
Cardiovascular Exam: regular rate/rhythm, no murmur and normal peripheral pulses
Pulmonary Exam
Pulmonary Exam: lungs clear and other (mild anterior chest tenderness)
Neurological Exam
Neurological Exam: alert and oriented x3
Musculoskeletal Exam
Musculoskeletal Exam: full ROM
Skin Exam
Skin Exam: normal color and warm/dry
Psychiatric Exam
Psychiatric Exam: normal mood/affect
Scores
Heart Score for Chest Pain Patients
STEMI patient?: Not applicable
Course
Orders/Labs/Results
Orders:
Orders
12/20/24 11:22
Electrocardiogram (*1) Urgent
Reason for Study: Chest Pain
EKG- Treatment ONCE
12/20/24 11:33
Complete Blood Count/With Diff Urgent
Comprehensive Metabolic Panel Urgent
Troponin I Urgent
12/20/24 12:19
Chest [CR Chest - 2 Views ] Urgent
Comment:
Reason For Exam: cp
12/20/24 12:39
DDimer [D-Dimer] Urgent
Abnormal Lab Results
12/20/24
11:33
RBC 4.25 L 10^6/uL
(4.70-6.10)
Hgb 12.5 L g/dL
(13.0-18.0)
Hct 36.3 L %
(39.0-52.0)
Absolute Lymphs (auto) 1.1 L 10^3/uL
(1.2-3.4)
Lymphocytes % 14.3 L %
(20.5-51.1)
Glucose 154 H mg/dl
(70-99)
12/20/24 11:33
12/20/24 11:33
Vital Signs
Initial and Last Documented VS:
Initial Vital Signs
Pulse Ox
97
12/20/24 11:22
Last Documented Vital Signs
Temp Pulse Resp BP Pulse Ox
97.8 F 57 12 119/62 95
12/20/24 11:26 12/20/24 15:00 12/20/24 15:00 12/20/24 15:00 12/20/24 14:05
Ladies Underwear Operator consulted with Physician
Ladies Underwear Operator consulted with physician?: Yes
Name of Physician Consulted: [facility]
MDM/Problems Addressed
MDM/Problems Addressed:
Patient with normal cardiac workup patient no acute distress no recent illness cough fever chills no injury but does admit to using his upper body to get himself around with a wheelchair.
Patient has had a normal cardiac troponin, negative chest x-ray normal white count normal white count afebrile no acute distress patient without discomfort here in the ER possible muscular as he uses his upper body to get around in his wheelchair.
He denies any associated shortness of breath is nontachycardic not hypoxic with a negative D-dimer .
Patient had a normal echo 2020
he is in no acute distress stable for discharge home
*Radiology
Radiology exam reviewed: radiology read reviewed
*Pulse Oximetry
Patient hypoxic: no
*EKG
Interpreted by ED Provider?: Yes
Interpretation: normal
Comparison EKG: no changes
Heart Rate: 59
Rate: normal
Rhythm: sinus
Ischemia: no ischemia
*Critical Care Note
Total Time (30-74mins, 75-104mins- exclusive of procedures): Not Applicable
ED Attending Note
-
Portions of this chart may have been created with voice recognition software.� Occasional wrong word or��sound alike� substitutions may have occurred due to the inherent limitations of voice recognition software.
Discharge Plan
Departure
Patient Disposition: [facility]
Date of Disposition: 12/20/24
Time of Disposition: 15:29
Patient with high blood pressure during this ER visit?: No
Condition: Fair
Covid-19: Not Applicable
Discharge Problem:
Chest pain
Instructions: Chest Pain PCP Follow Up
Prescriptions:
No Action
aspirin 81 MG tablet,delayed release (DR/EC)
81 mg PO DAILY Qty: 0 0RF
atorvastatin 40 MG tablet
40 mg PO QPM
potassium citrate 10 MEQ tablet extended release
30 meq PO BID
levothyroxine 25 MCG tablet
25 mcg PO DAILY
sennosides [senna] 8.6 mg Tablet
8.6 mg PO HS
polyethylene glycol 3350 [Miralax] 17 gram Powder In Packet
17 g PO DAILY
Rx Instructions:
stir powder in at least 4 oz fluid until dissolved and administer immediately
amlodipine 5 mg Tablet
5 mg PO DAILY
zonisamide [Zonegran] 100 mg Capsule
100 mg PO DAILY
trazodone 100 mg Tablet
100 mg PO HS
hydrocortisone 1 % Cream
1 applic TOPICAL BID PRN (Reason: skin rash)
Rx Instructions:
apply to forehead, until resolved
bisacodyl 10 mg Suppository
10 mg [place] DAILY PRN (Reason: No bm 3 days and lactulose ineffective)
Rx Instructions:
q3days when no BM and lactulose is ineffective
oxybutynin chloride [Ditropan XL] 5 mg Tablet Extended Release 24hr
5 mg PO HS
gabapentin 300 mg Capsule
300 mg PO TID
levetiracetam [Keppra] 750 mg Tablet
1,500 mg PO BID
alum-mag hydroxide-simeth [Antacid] 200-200-20 mg/5 mL Suspension
20 ml PO Q8H
nystatin 100,000 unit/gram Powder
1 applic TOPICAL BID PRN (Reason: cutaneous candidiasis)
loratadine 10 mg Tablet
10 mg PO DAILY PRN (Reason: hypersensitive allergies)
lactulose 10 gram/15 mL Solution
20 g PO HS PRN (Reason: constipation)
Refresh Optive 0.5-0.9 % Drops
1 drp OPHTHALMIC (EYE) BID PRN (Reason: dry eye)
Rx Instructions:
BOTH EYES
lidocaine HCl 4 % Adhesive Patch,Medicated
1 patch TOPICAL DAILY
Rx Instructions:
ON AM, OFF PM
x14 days, first date: 11/03/2023
Left knee
famotidine 10 mg tablet
10 mg PO DAILY
lidocaine 5 % Cream
1 applic TOPICAL TID
tamsulosin 0.4 mg capsule
0.8 mg PO HS
fluticasone propionate [Flonase Allergy Relief] 50 mcg/actuation [place],Suspension
2 spray INTRANASAL DAILY PRN (Reason: Nasal Congestions)
sertraline 50 mg Tablet
50 mg PO DAILY
acetaminophen 325 MG tablet
650 mg PO Q6HPRN PRN (Reason: MILD PAIN)
Patient Comments:
'none taken in last week' per facility
Rx Instructions:
FEVER > 100.4
Referrals:
Sancho Spencer DO [Family Provider] -
Activity Restrictions/Additional Instructions:
Patient had a normal cardiac workup here in the ER normal chest x-ray no acute findings on EKG he is to follow-up with his family doctor in the next several days.
Interventions
Interventions:
*Risk Screen - Suicide Last Done: 12/20/24 11:28
*General Assessment Last Done: 12/20/24 11:28
*Neglect/Abuse Screening Last Done: 12/20/24 11:28
*ED- Fall Risk Assessment Last Done: 12/20/24 11:28
*ED COVID-19 Vaccine History Last Done: 12/20/24 11:28
ED- Cardiac Assessment Last Done: 12/20/24 11:29
Discharge Date and Time
Print Language: KYRGYZ
[2024-12-20 13:00] VITALS: BP 109/64
[2024-12-20 13:00] LABS: D-Dimer 0.31 ug/mlFEU (0.00-0.50)
[2024-12-20 14:00] VITALS: BP 103/63
[2024-12-20 15:00] VITALS: BP 119/62
[2024-12-20 16:00] VITALS: BP 114/63
== END 2024-12-20 16:29 ==
LOC: EMR 11:17
PROVIDERS: Nurse Practitioner; EMERGENCY PHYSICIAN Emergency Medicine; FAMILY PHYSICIAN Student in an Organized Health Care Education/Training Program
DX: R07.89 Other chest pain (principal); E03.9 Hypothyroidism, unspecified; E78.00 Pure hypercholesterolemia, unspecified; K21.9 Gastro-esophageal reflux disease without esophagitis; I10 Essential (primary) hypertension; F41.8 Other specified anxiety disorders; K58.9 Irritable bowel syndrome, unspecified; G47.30 Sleep apnea, unspecified; I87.2 Venous insufficiency (chronic) (peripheral); Z82.49 Family history of ischemic heart disease and other diseases of the circulatory system; Z85.820 Personal history of malignant melanoma of skin; Z85.828 Personal history of other malignant neoplasm of skin; Z86.718 Personal history of other venous thrombosis and embolism; Z86.73 Personal history of transient ischemic attack (TIA), and cerebral infarction without residual deficits; Z87.11 Personal history of peptic ulcer disease; Z87.440 Personal history of urinary (tract) infections; Z87.442 Personal history of urinary calculi
CPT/HCPCS: 99283; 71046; 80053; 84484; 85025; 85379; 93005

== ENCOUNTER → 2025-02-14 10:53 | Outpatient (REF) | payer MEDICARE, OTHER, SELFPAY ==
[2025-02-17 01:36] LABS: Keppra (Levetiracetam) 25 ug/mL (10-40)
== END ==
LOC: OLABN 10:53
PROVIDERS: ATTENDING PHYSICIAN Student in an Organized Health Care Education/Training Program
DX: G40.A09 Absence epileptic syndrome, not intractable, without status epilepticus (principal)
CPT/HCPCS: 36415; 80177

== ENCOUNTER 2025-03-11 21:30 | Emergency (ER) | payer MEDICARE, OTHER, SELFPAY ==
[2025-03-11 21:40] VITALS: BMI 32.5
[2025-03-11 21:41] VITALS: BP 126/71
[2025-03-11 21:55] LABS: % Basophils 0.6 % (0-2); % Eosinophils 2.9 % (0-6); % Immature Granulocytes 0.4 % (0-0.5); % Lymphocytes 19.7 % (20.5-51.1); % Monocytes 9.4 % (1.7-9.3); Absolute Basophils 0.1 10^3/uL (0-0.2); Absolute Eosinophils 0.2 10^3/uL (0-0.7); Absolute Lymphocytes 1.6 10^3/uL (1.2-3.4); Absolute Monocytes 0.7 10^3/uL (0.1-0.6); Absolute Neutrophils 5.3 10^3/uL (1.4-6.5); Hematocrit 36.5 % (39.0-52.0); Hemoglobin 12.6 g/dL (13.0-18.0); Mean Corp Hgb Conc. 34.5 g/dL (33.0-37.0); Mean Corpuscular Hgb 29.4 pg (27.0-31.0); Mean Corpuscular Volume 85.1 fL (80.0-94.0); Mean Platelet Volume 10.3 fL (7.4-10.4); Nucleated Red Blood Cells % 0 % (-); Platelet Count 222 10^3/uL (130-400); Red Blood Cell Count 4.29 10^6/uL (4.70-6.10); Red Cell Dist. Width 12.6 % (11.5-14.5); White Blood Cell Count 7.9 10^3/uL (4.8-10.8)
[2025-03-11 22:00] VITALS: BP 116/69
[2025-03-11 22:18] LABS: Troponin I < 0.012 ng/ml
[2025-03-11 22:24] LABS: ALT (SGPT) 20 U/L (0-50); AST (SGOT) 18 U/L (17-59); Albumin 4.3 g/dl (3.5-5.0); Alkaline Phosphatase 101 U/L (38-126); Blood Urea Nitrogen 22 mg/dl (9-20); Calcium 9.6 mg/dl (8.4-10.2); Carbon Dioxide 27 mmol/L (22-30); Chloride 110 mmol/L (98-107); Estimated Creatinine Clearance 93 ml/min; Glucose 139 mg/dl (70-99); Lipase 99 U/L (23-300); Potassium 4.3 mmol/L (3.5-5.1); Sodium 143 mmol/L (135-145); Total Bilirubin 0.4 mg/dl (0.2-1.3); Total Protein 6.6 g/dl (6.3-8.2); eGFR > 60.00
--- NOTE | 2025-03-11 22:44 | ED.GENMED ---
History of Present Illness
General
Chief Complaint: Chest Pain
Source: patient, ambulance crew and long-term records
Exam Limitations: none
Time Seen by Provider: 03/11/25 22:33
Nursing documentation reviewed up to this point in time: agreed with
History of Present Illness
History of Present Illness:
74-year-old male with history of seizures, CVA, hypertension, hyperlipidemia, GERD, BPH who presents to the emergency department from [facility] for evaluation of chest pain. Patient reports symptoms started yesterday afternoon while at rest
and have been intermittent since then. He reports 'pain in both breasts.' He says that it ranges from 3/10 to 6/10 intensity. He describes it as occasionally a sharp sensation, occasionally more of a dull pain 'like a bruise.' No clear
triggering or relieving factors noted. Duration is variable�sometimes last for 5 minutes, sometimes for longer. He reports that today he also had some associated 'pain like gas was trapped' in the right upper abdomen. He denies any shortness of
breath. He denies any nausea, vomiting, diaphoresis. He denies any recent cough, fevers, chills. Denies any recent swelling or pain in the legs. He did receive Maalox from nurse at [facility] for his symptoms and he says that they
seem to have resolved with this measure but he still wished to be evaluated in the ER.
Past History
Past History
ED Past Medical History: Cancer (malignant melanoma removed from shoulder on the left, Skin cancer), CVA, GERD, HTN, Hypercholesterolemia, Seizures, Hypothyroidism, Psychiatric (Anxiety, Depression, ), Other (Migraines, IBS, chronic static
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 difficulty with balance, Neuropathy, Sleep apnea uses CPAP, DVT left, GI bleeding, Renal calculus, ), Other (TIAs, UTi, Brachial plexlpathy, ) and Other (duodenal ulcer with UGI bleed 2013, kidney
stones); Negative IDDM
ED Past Surgical History: Urological (Lithotripsy X 2) and Other (lithotripsy, Malignant melanoma removed from left shoulder 2 years ago.)
Social History
Tobacco: Non-smoker
Alcohol: Occasional (rare ETOH)
Drug: None
Personal: Single
Living: long-term
Employment: Disabled
Family History
Family History: Hypertension
Review of Systems
Review of Systems
All Other Systems: ROS reviewed and negative except as documented in HPI and ROS
Constitutional: Denies fever or chills
Respiratory: Denies cough or trouble breathing
Cardiac: Reports chest pain; Denies diaphoresis, palpitations or syncope
ABD/GI: Reports abdominal pain; Denies nausea, vomiting or diarrhea
: Denies flank pain
Musculoskeletal: Denies neck pain or back pain
Neurological: Denies dizzy or headache
Phy Exam
Physical Exam
Physical Exam:
General: Awake, alert, oriented x3; no acute distress
Head: Normocephalic, atraumatic
Eyes: Conjunctiva normal, sclera anicteric
Throat: Airway intact, handling secretions
Neck: Trachea midline, no JVD
Lungs: Clear to auscultation bilaterally, no wheezing, rales, rhonchi
Heart: Regular rate and rhythm, no murmurs, gallops, or rubs appreciated
Abd: Soft, non distended, very mild tenderness right upper quadrant with no peritoneal signs or masses appreciated
Skin: no rash in area of concern
Extremities: Trace edema in the legs bilaterally; no calf tenderness, extremities are warm and well-perfused
Scores
Heart Failure Risk
Heart Failure Risk Score: Not Applicable
Heart Score for Chest Pain Patients
STEMI patient?: No
History: Slightly or Non-Suspicious
ECG: Normal
Age: >/= 65 years
Risk Factors: >/= 3 Risk Factors or History of CAD
Troponin: </= Normal Limit
Heart Score for Chest Pain Patients: 4
Heart Score Risk: 20.3% MACE over next 6 weeks
Withdrawal Assessment of Alcohol
Withdrawal Assessment Completed?: Not applicable
Course
Orders/Labs/Results
Orders:
Orders
03/11/25 00:45
Troponin I Urgent
03/11/25 21:39
Electrocardiogram (*1) Urgent
Reason for Study: Chest Pain
EKG- Treatment ONCE
03/11/25 21:45
Complete Blood Count/With Diff Urgent
Comprehensive Metabolic Panel Urgent
Lipase Urgent
Troponin I Urgent
03/11/25 22:34
US Abdomen Complete/Upper Urgent
Comment:
Reason For Exam: RUQ pain
03/11/25 22:43
CR Chest - 2 Views Urgent
Comment:
Reason For Exam: cp
Abnormal Lab Results
03/11/25
21:45
RBC 4.29 L 10^6/uL
(4.70-6.10)
Hgb 12.6 L g/dL
(13.0-18.0)
Hct 36.5 L %
(39.0-52.0)
Absolute Monos (auto) 0.7 H 10^3/uL
(0.1-0.6)
Lymphocytes % 19.7 L %
(20.5-51.1)
Monocytes % 9.4 H %
(1.7-9.3)
Chloride 110 H mmol/L
(98-107)
BUN 22 H mg/dl
(9-20)
Glucose 139 H mg/dl
(70-99)
03/11/25 21:45
03/11/25 21:45
Vital Signs
Initial and Last Documented VS:
Initial Vital Signs
Pulse Resp Pulse Ox
73 18 96
03/11/25 21:40 03/11/25 21:40 03/11/25 21:40
Last Documented Vital Signs
Temp Pulse Resp BP Pulse Ox
36.5 C 67 21 116/69 91
03/11/25 21:41 03/11/25 22:02 03/11/25 22:00 03/11/25 22:00 03/11/25 22:00
MDM/Problems Addressed
Differential Diagnosis Includes:
Angina/ACS, pneumothorax, pneumonia, cholelithiasis, cholecystitis, GERD, PUD
MDM/Problems Addressed:
74-year-old male presents for evaluation of atypical chest pain across the chest as well as sensation of gas in the right upper quadrant. Seems to have resolved with treatment using Maalox prehospital. His EKG here shows sinus rhythm with no acute
ischemia. Plan to place an IV check labs including a CBC and a CMP, serial troponins. Will check chest x-ray. Check upper abdominal ultrasound. Monitor closely reassess after the above.
Initial labs reviewed: CBC unremarkable, CMP no clinically significant abnormalities�notably normal LFTs. Lipase normal. Initial troponin undetectable. Continue to monitor.
Clinical reassessment patient remains asymptomatic. Vital signs within acceptable range. Chest x-ray reviewed by me shows no acute disease. Upper abdominal ultrasound showed possible sludge no stones, no acute abnormalities. No obstructive
uropathy or hydronephrosis. I think this point likeliest explanation for his symptoms is GERD/gastritis. He is already on famotidine and takes Maalox as needed. Reasonable to add PPI. I think he can be discharged if he remains stable and
asymptomatic and repeat troponin is negative. He feels very comfortable with this plan.
*Radiology
Radiology exam reviewed: radiology read reviewed
*Pulse Oximetry
Patient hypoxic: no
*EKG
Interpreted by ED Provider?: Yes
Heart Rate: 66
Rate: normal
Rhythm: sinus
Silex: normal axis
Interval: normal interval
QRS Pattern: normal QRS
Ischemia: no ischemia
*Critical Care Note
Total Time (30-74mins, 75-104mins- exclusive of procedures): Not Applicable
Data Reviewed
Review of Other/Old Records Reveals: Labs and Records
Source: patient, records, ambulance crew and long-term records
ED Attending Note
-
Portions of this chart may have been created with voice recognition software.� Occasional wrong word or��sound alike� substitutions may have occurred due to the inherent limitations of voice recognition software.
Discharge Plan
Departure
Patient with high blood pressure during this ER visit?: No
Discharge Problem:
Chest pain
Instructions: Chest Pain PCP Follow Up
Prescriptions:
New
pantoprazole 40 mg tablet,delayed release (DR/EC)
40 mg PO DAILY Qty: 30 0RF
No Action
aspirin 81 MG tablet,delayed release (DR/EC)
81 mg PO DAILY Qty: 0 0RF
atorvastatin 40 MG tablet
40 mg PO QPM
potassium citrate 10 MEQ tablet extended release
30 meq PO BID
sennosides [senna] 8.6 mg Tablet
8.6 mg PO HS
polyethylene glycol 3350 [Miralax] 17 gram Powder In Packet
17 g PO DAILY
Rx Instructions:
stir powder in at least 4 oz. fluid until dissolved and administer immediately
amlodipine 5 mg Tablet
5 mg PO DAILY
zonisamide [Zonegran] 100 mg Capsule
100 mg PO DAILY
trazodone 100 mg Tablet
100 mg PO HS
hydrocortisone 1 % Cream
1 applic TOPICAL BIDPRN PRN (Reason: skin rash)
Rx Instructions:
apply to forehead, until resolved
bisacodyl 10 mg Suppository
10 mg ME [id number] PRN (Reason: No bm and lactulose ineffective)
oxybutynin chloride [Ditropan XL] 5 mg Tablet Extended Release 24hr
5 mg PO HS
gabapentin 300 mg Capsule
300 mg PO TID
levetiracetam [Keppra] 750 mg Tablet
1,500 mg PO BID
alum-mag hydroxide-simeth [Antacid] 200-200-20 mg/5 mL Suspension
20 ml PO Q8HPRN PRN (Reason: acid indigestion)
nystatin 100,000 unit/gram Powder
1 applic TOPICAL BIDPRN PRN (Reason: cutaneous candidiasis/itching)
Rx Instructions:
groin
loratadine 10 mg Tablet
10 mg PO DAILYPRN PRN (Reason: hypersensitive allergies)
lactulose 10 gram/15 mL Solution
20 g PO HSPRN PRN (Reason: constipation)
lidocaine HCl 4 % Adhesive Patch,Medicated
1 patch TOPICAL DAILY
Rx Instructions:
Left knee
famotidine 10 mg tablet
10 mg PO DAILY
tamsulosin 0.4 mg capsule
0.8 mg PO HS
fluticasone propionate [Flonase Allergy Relief] 50 mcg/actuation [place],Suspension
2 spray INTRANASAL DAILYPRN PRN (Reason: Nasal Congestion)
sertraline 50 mg Tablet
50 mg PO DAILY
acetaminophen 325 MG tablet
650 mg PO Q6HPRN PRN (Reason: MILD PAIN)
levothyroxine 25 mcg Tablet
25 mcg PO DAILY
Refresh Classic (PF) 1.4-0.6 % [place]
1 drp BOTH EYES TID
ibuprofen 200 mg Tablet
200 mg PO Q6HPRN PRN (Reason: moderate pain)
Referrals:
Sancho Spencer DO [Family Provider, Family Practice] - Follow up in 5-7 days
Activity Restrictions/Additional Instructions:
Thank you for visiting the Emergency Department at [facility].
1. Please schedule a follow up appointment as directed. Call first thing tomorrow morning to make an appointment.
2. If indicated, please take your medications as instructed and indicated on discharge paperwork.
3. If any of your symptoms do not improve, or persist, or become more severe within 6-12 hours, please return to the emergency department for further care.
4. Please return to the emergency department if you develop a headache, neck pain/stiffness, fever greater than 100.4F, chest pain, shortness of breath, persistent nausea, vomiting, slurred speech, difficulty walking, numbness/tingling, weakness,
signs of infection or any other symptoms that are worrisome to you.
Please call [phone] if you have any questions.
Interventions
Interventions:
*Risk Screen - Suicide Last Done: 03/11/25 21:33
*General Assessment Last Done: 03/11/25 21:42
*Neglect/Abuse Screening Last Done: 03/11/25 21:33
*ED- Fall Risk Assessment Last Done: 03/11/25 21:42
*ED COVID-19 Vaccine History Last Done: 03/11/25 21:42
EP-Dujszn-Itoccbhdak Assessment Last Done: 03/11/25 21:42
ED- Cardiac Assessment Last Done: 03/11/25 21:42
Discharge Date and Time
Print Language: SLOVENIAN
[2025-03-11 23:00] VITALS: BP 120/66
[2025-03-12] VITALS: BP 116/70
[2025-03-12 00:33] LABS: Troponin I < 0.012 ng/ml
[2025-03-12 01:00] VITALS: BP 119/70
[2025-03-12 02:00] VITALS: BP 121/70
[2025-03-12 03:00] VITALS: BP 118/68
--- NOTE | 2025-03-12 03:29 | EDRN ---
Patient is sleeping at this time and waiting on transport
== END 2025-03-12 04:04 | disposition home or self-care (01) ==
LOC: EMR 21:30
PROVIDERS: Student in an Organized Health Care Education/Training Program; EMERGENCY PHYSICIAN Emergency Medicine; FAMILY PHYSICIAN Student in an Organized Health Care Education/Training Program
DX: R07.89 Other chest pain (principal); E03.9 Hypothyroidism, unspecified; E78.00 Pure hypercholesterolemia, unspecified; G47.30 Sleep apnea, unspecified; I10 Essential (primary) hypertension; I25.10 Atherosclerotic heart disease of native coronary artery without angina pectoris; K21.9 Gastro-esophageal reflux disease without esophagitis; N40.0 Benign prostatic hyperplasia without lower urinary tract symptoms; Z85.828 Personal history of other malignant neoplasm of skin; Z86.718 Personal history of other venous thrombosis and embolism; Z86.73 Personal history of transient ischemic attack (TIA), and cerebral infarction without residual deficits; Z87.11 Personal history of peptic ulcer disease
CPT/HCPCS: 99285; 71046; 76700; 80053; 83690; 84484; 85025; 93005

== ENCOUNTER → 2025-05-16 09:23 | Outpatient (REF) | payer MEDICARE, OTHER, SELFPAY | LOC: OLABN 09:23 | PROVIDERS: ATTENDING PHYSICIAN Student in an Organized Health Care Education/Training Program | DX: G40.A09 Absence epileptic syndrome, not intractable, without status epilepticus (principal) | CPT/HCPCS: 36415; 80177 ==

== ENCOUNTER → 2025-05-29 10:44 | Outpatient (REF) | payer MEDICARE, OTHER, SELFPAY ==
[2025-05-29 12:16] LABS: PSA, Total - Screen 3.88 ng/ml (0.0-4.0)
== END ==
LOC: OLABN 10:44
PROVIDERS: ATTENDING PHYSICIAN Student in an Organized Health Care Education/Training Program
DX: N40.0 Benign prostatic hyperplasia without lower urinary tract symptoms (principal); Z12.5 Encounter for screening for malignant neoplasm of prostate
CPT/HCPCS: 36415; G0103

== ENCOUNTER → 2025-08-01 10:40 | Outpatient (REF) | payer MEDICARE, OTHER, SELFPAY ==
[2025-08-01 11:07] LABS: Hematocrit 38.3 % (39.0-52.0); Hemoglobin 12.6 g/dL (13.0-18.0); Mean Corp Hgb Conc. 32.9 g/dL (33.0-37.0); Mean Corpuscular Volume 89.7 fL (80.0-94.0); Nucleated Red Blood Cells % 0 % (-); Platelet Count 235 10^3/uL (130-400); Red Cell Dist. Width 12.8 % (11.5-14.5)
[2025-08-01 11:16] LABS: ALT (SGPT) 27 U/L (0-50); AST (SGOT) 24 U/L (17-59); Albumin 3.9 g/dl (3.5-5.0); Alkaline Phosphatase 108 U/L (38-126); Blood Urea Nitrogen 25 mg/dl (9-20); Calcium 9.4 mg/dl (8.4-10.2); Carbon Dioxide 25 mmol/L (22-30); Chloride 107 mmol/L (98-107); Glucose 150 mg/dl (70-99); Potassium 4.4 mmol/L (3.5-5.1); Sodium 136 mmol/L (135-145); Total Protein 6.5 g/dl (6.3-8.2); eGFR 57.65
== END ==
LOC: OLABN 10:40
PROVIDERS: ATTENDING PHYSICIAN Student in an Organized Health Care Education/Training Program
DX: R56.9 Unspecified convulsions (principal); E78.5 Hyperlipidemia, unspecified; E78.2 Mixed hyperlipidemia
CPT/HCPCS: 36415; 80053; 82248; 85025

== ENCOUNTER → 2025-08-15 10:27 | Outpatient (REF) | payer MEDICARE, OTHER, SELFPAY ==
[2025-08-17 04:30] LABS: Free Kappa Light Chains,Quant 28.24 mg/L (3.30-19.40); Free Lambda Light Chains,Quant 82.69 mg/L (5.71-26.30); Kappa/Lambda Fr Light Ratio 0.34 (0.26-1.65)
== END ==
LOC: OLABN 10:27
PROVIDERS: ATTENDING PHYSICIAN Student in an Organized Health Care Education/Training Program
DX: G40.A09 Absence epileptic syndrome, not intractable, without status epilepticus (principal)
CPT/HCPCS: 36415; 83521

== ENCOUNTER → 2025-09-03 11:06 | Outpatient (REF) | payer MEDICARE, OTHER, SELFPAY ==
[2025-09-03 12:28] LABS: TSH 2.61 uIU/ml (0.47-4.68)
== END ==
LOC: OLABN 11:06
PROVIDERS: ATTENDING PHYSICIAN Student in an Organized Health Care Education/Training Program
DX: E03.9 Hypothyroidism, unspecified (principal)
CPT/HCPCS: 36415; 84443